=== PATIENT | male | born 1990 | race African-American/Black ===

== ENCOUNTER 2024-12-15 21:50 | Emergency (ER) | payer SELFPAY ==
[~2024-12-15] VITALS: Ht 177.8 cm; Wt 85.0 kg
[2024-12-15 21:58] VITALS: O2SAT 100
[2024-12-15 22:13] VITALS: TEMP 36.55848; O2SAT 100
[2024-12-15 22:30] LABS: HEMATOCRIT 47.1 % (42.0-52.0); HEMOGLOBIN 15.7 g/dL (14.0-18.0); MEAN CORPUSCULAR HEMOGLOBIN 30.5 pg (28.0-32.0); MEAN CORPUSCULAR HGB CONC 33.2 g/dL (31.0-37.0); MEAN CORPUSCULAR VOLUME 91.7 fL (80.0-94.0); PLATELET 233 x1000/uL (130-400); RED BLOOD CELL COUNT 5.14 mill/uL (4.7-6.1); RED CELL DISTRIBUTION WIDTH 13.4 % (11.6-14.6); WHITE BLOOD COUNT 8.3 x1000/uL (4.5-11.0)
[2024-12-15] MEDS ORDERED: TETANUS, DIPHTHERIA, PERTUSSIS VAC/PF 0.5ML (>10YR OLD) IM ONE (22:45)
[2024-12-15 22:53] LABS: CHLORIDE 110 mEq/L (98-107); POTASSIUM 3.1 mEq/L (3.5-5.1); SODIUM 143 mEq/L (136-145)
[2024-12-15 22:54] LABS: CALCIUM 9.4 mg/dL (8.7-10.4); CARBON DIOXIDE 23 mEq/L (21-32)
[2024-12-15 22:59] LABS: GLUCOSE 105 mg/dL (70-105); UREA NITROGEN BLOOD 11 mg/dL (9-23)
[2024-12-15 23:16] VITALS: BP 168/93; PULSE 93; RESP 18
[2024-12-15] MEDS: HYDROCODONE/ACETAMINOPHEN 7.5/325MG TABLET PO ONE (23:16)
[2024-12-15] MEDS: HYDROCODONE/ACETAMINOPHEN 7.5/325MG TABLET PO NR (23:17)
[2024-12-15] MEDS: TETANUS, DIPHTHERIA, PERTUSSIS VAC/PF 0.5ML (>10YR OLD) IM ONE (23:20)
[2024-12-15] MEDS: CEFAZOLIN 1000MG PREMIX 50 ML IV ONE (23:37)
[2024-12-16] MEDS ORDERED: CEPH500T MT (00:24)
== END 2024-12-16 00:37 | disposition home or self-care (01) ==
LOC: ER 21:50
DX: S71.132A Puncture wound without foreign body, left thigh, initial encounter (principal); W34.00XA Accidental discharge from unspecified firearms or gun, initial encounter; Y93.89 Activity, other specified; Y92.89 Other specified places as the place of occurrence of the external cause; Y99.8 Other external cause status
CPT/HCPCS: 80048; 85027; 86850; 86900; 86901; 36415; 73551; 71045; 72170; 90715; 90471; 96365; 99291; J0690; Z7610